=== PATIENT | female | born 1975 | race Caucasian/White ===

== ENCOUNTER 2020-10-29 16:41 | Emergency (ER) | payer OTHER ==
[2020-10-29 17:01] VITALS: BP 115/72; PULSE 79; TEMP 98.2; BMI 31.5
[2020-10-29] MEDS ORDERED: predniSONE 20 MG TABLET (UD) PO ONE (17:53)
[2020-10-29] MEDS ORDERED: predniSONE 20 MG TABLET (UD) ONE (18:02)
== END 2020-10-29 18:14 | disposition home or self-care (01) ==
LOC: JERFT 16:41
PROC: 3E023NZ Introduction of Analgesics, Hypnotics, Sedatives into Muscle, Percutaneous Approach (ICD-10-PCS; principal; 2020-10-29)
DX: L24.89 Irritant contact dermatitis due to other agents (principal)
CPT/HCPCS: 99283-25